=== PATIENT | male | born 2000 | race Caucasian/White ===

== ENCOUNTER 2020-02-26 12:34 | Emergency (ER) | payer SELFPAY ==
[~2020-02-26] VITALS: Ht 170.2 cm; Wt 72.6 kg
[2020-02-26 13:41] VITALS: BP 133/62
[2020-02-26] MEDS ORDERED: BACITRACIN OINT 500 UNITS/GM PKT TP ONE (14:00)
--- NOTE | 2020-02-26 14:30 | NUR ---
19/M c/o left thumb laceration since yesterday. Pt states he was working on dry wall and was cut with a razor blade. No active bleeding noted.
[2020-02-26 14:57] VITALS: BP 133/62
--- NOTE | 2020-02-26 14:57 | NUR ---
Pt left facility without discharge instructions.
== END 2020-02-26 14:57 | disposition home or self-care (01) ==
LOC: MED 12:34
DX: S61.012A Laceration without foreign body of left thumb without damage to nail, initial encounter (principal); W26.8XXA Contact with other sharp object(s), not elsewhere classified, initial encounter; Y93.89 Activity, other specified; Y92.89 Other specified places as the place of occurrence of the external cause; Y99.8 Other external cause status
CPT/HCPCS: 90471; 90715; 99283

== ENCOUNTER 2022-03-05 01:24 | Emergency (ER) | payer SELFPAY ==
[~2022-03-05] VITALS: Ht 170.2 cm; Wt 81.6 kg
[2022-03-05 01:28] VITALS: BP 161/88
--- NOTE | 2022-03-05 01:34 | NUR ---
Dr. Jaffe examining patient.
[2022-03-05 01:39] VITALS: BP 161/88
--- NOTE | 2022-03-05 01:39 | NUR ---
Patient D/C to custody.
== END 2022-03-05 02:04 ==
LOC: MED 01:24
DX: S00.81XA Abrasion of other part of head, initial encounter (principal); Z02.89 Encounter for other administrative examinations; V89.2XXA Person injured in unspecified motor-vehicle accident, traffic, initial encounter; Y93.89 Activity, other specified; Y92.89 Other specified places as the place of occurrence of the external cause; Y99.8 Other external cause status
CPT/HCPCS: 99283